=== PATIENT | male | born 1945 | race Caucasian/White ===

== ENCOUNTER 2022-05-09 17:02 | Observation (INO) | payer MEDICARE ==
[2022-05-09 17:38] LABS: #Eosinphils 0.3 thou/uL (0.0-0.7); #Lymphocytes 1.9 thou/uL (1.20-3.40); %Basophils 0.4 % (0.0-1.0); %Eosinophils 3.1 % (0.0-10.0); %Lymphocytes 20.8 % (21.0-51.0); %Monocytes 10.6 % (0.0-10.0); %Neutrophils 65.1 % (42.0-75.0); Hemoglobin 15.4 g/dL (14.0-18.0); Mean Corpuscular HGB CONC 33.5 g/dL (32.0-36.0); Mean Corpuscular Hemoglobin 30.3 pg (27.0-31.0); Mean Corpuscular Volume 90.5 fl (78.0-98.0); Mean Platelet Volume 8.9 fL (7.4-10.4); Platelet Count 188 10x3/uL (130-400); RBC Distribution Width 12.8 % (11.5-14.5); Red Blood Cell (RBC) Count 5.08 mill/uL (4.70-6.10); White Blood Cell (WBC) Count 9.2 10x3/uL (4.8-10.8)
[2022-05-09 18:09] LABS: ALT (SGPT) 18 U/L (8-55); AST (SGOT) 23 U/L (5-34); Albumin 4.2 g/dL (3.4-4.8); Alkaline Phosphatase 63 U/L (40-110); Anion Gap 15 mmol/L (10-20); BUN (Urea Nitrogen) 24 mg/dL (8.4-25.7); Calc. Creatinine Clearance 0 mL/min (70-130); Calcium 9.3 mg/dL (7.8-10.44); Carbon Dioxide 21 mmol/L (23-31); Chloride 106 mmol/L (98-107); Estimated GFR 62; Globulin 3.2 g/dL (2.4-3.5); Glucose 105 mg/dL (83-110); Potassium 3.9 mmol/L (3.5-5.1); Protein, Total 7.4 g/dL (5.8-8.1); Sodium 138 mmol/L (136-145)
[2022-05-09 21:52] LABS: CKMB 2.3 ng/mL (0-6.6)
[2022-05-09] MEDS ORDERED: Aspirin Chewable 81 MG TAB ONE (22:03)
[2022-05-09] MEDS ORDERED: Ondansetron ODT 4 MG TAB PO PRN (23:02)
[2022-05-09] MEDS ORDERED: Senokot S 8.6-50 MG TAB PO PRN (23:02)
[2022-05-09] MEDS ORDERED: Acetaminophen 325 MG TAB PO PRN (23:02)
[2022-05-09] MEDS ORDERED: Albuterol 200 PUFF (6.7GM INHALER) INH PRN (23:03)
[2022-05-10 00:13] VITALS: BMI 23.6
[2022-05-10 00:19] LABS: Troponin I 0.058 ng/mL (< 0.028)
[2022-05-10 04:53] LABS: #Eosinphils 0.4 thou/uL (0.0-0.7); #Lymphocytes 1.7 thou/uL (1.20-3.40); #Monocytes 0.9 thou/uL (0.11-0.59); #Neutrophils 2.9 thou/uL (1.40-6.50); %Basophils 0.6 % (0.0-1.0); %Eosinophils 6.1 % (0.0-10.0); %Lymphocytes 28.8 % (21.0-51.0); %Monocytes 14.8 % (0.0-10.0); %Neutrophils 49.6 % (42.0-75.0); Hemoglobin 13.9 g/dL (14.0-18.0); Mean Corpuscular HGB CONC 33.7 g/dL (32.0-36.0); Mean Corpuscular Hemoglobin 30.8 pg (27.0-31.0); Mean Corpuscular Volume 91.5 fl (78.0-98.0); Mean Platelet Volume 8.7 fL (7.4-10.4); Platelet Count 167 10x3/uL (130-400); RBC Distribution Width 12.9 % (11.5-14.5); Red Blood Cell (RBC) Count 4.53 mill/uL (4.70-6.10); White Blood Cell (WBC) Count 5.8 10x3/uL (4.8-10.8)
[2022-05-10 05:18] LABS: Anion Gap 11 mmol/L (10-20); BUN (Urea Nitrogen) 22 mg/dL (8.4-25.7); Calc. Creatinine Clearance 66 mL/min (70-130); Calcium 8.7 mg/dL (7.8-10.44); Carbon Dioxide 24 mmol/L (23-31); Chloride 108 mmol/L (98-107); Estimated GFR 71; Glucose 114 mg/dL (83-110); Potassium 3.7 mmol/L (3.5-5.1); Sodium 139 mmol/L (136-145)
[2022-05-10] MEDS: Aspirin Chewable 81 MG TAB PO SCH (08:43)
[2022-05-10] MEDS: Famotidine 20 MG TAB PO SCH ×2 (08:43→19:56)
[2022-05-10] MEDS: Tamsulosin HCl 0.4 MG CAP PO SCH (08:59)
[2022-05-10] MEDS ORDERED: Regadenoson 0.4 MG/5 ML SYRINGE ONE (09:52)
[2022-05-10] MEDS ORDERED: Communication Order-Pharmacy FS SCH (12:08)
[2022-05-10 12:34] LABS: Hemoglobin 14.4 g/dL (14.0-18.0); Platelet Count 188 10x3/uL (130-400)
[2022-05-10 12:53] LABS: Digoxin 1.08 ng/mL (0.8-2.0)
[2022-05-10] MEDS ORDERED: Atorvastatin Calcium 40 MG TAB PO SCH (21:00)
[2022-05-11 05:43] LABS: Hemoglobin A1c 5.7 % (4.0-6.0)
[2022-05-11 05:45] LABS: Anion Gap 12 mmol/L (10-20); BUN (Urea Nitrogen) 21 mg/dL (8.4-25.7); Calc. Creatinine Clearance 74 mL/min (70-130); Calcium 8.9 mg/dL (7.8-10.44); Carbon Dioxide 23 mmol/L (23-31); Cardiac Risk 2.8 (Less than 4.5); Chloride 109 mmol/L (98-107); Cholesterol 135 mg/dl (< 200 Desired); Estimated GFR 81; Glucose 100 mg/dL (83-110); HDL Cholesterol 49 mg/dL (>60 Neg Risk); LDL Cholesterol, Calculated 68 mg/dL; Potassium 4.1 mmol/L (3.5-5.1); Sodium 140 mmol/L (136-145); Triglycerides 90 mg/dL (Less than 150)
[2022-05-11 08:38] VITALS: TEMP 97.6
[2022-05-11] MEDS: Aspirin Chewable 81 MG TAB PO SCH (08:46)
[2022-05-11] MEDS: Tamsulosin HCl 0.4 MG CAP PO SCH (08:47)
[2022-05-11] MEDS: Famotidine 20 MG TAB PO SCH (08:47)
[2022-05-11 11:48] VITALS: BP 119/66
[2022-05-11] MEDS ORDERED: Metoprolol Tartrate 25 MG TAB PO PRN (21:00)
[2022-05-11] MEDS ORDERED: Apixaban 5 MG TAB PO SCH (21:00)
== END 2022-05-11 15:30 | disposition home or self-care (01) ==
LOC: ERS 17:02 → 2SW 22:34
PROVIDERS: ADMIT Student in an Organized Health Care Education/Training Program; ATTEND Family Medicine
DX: I48.92 Unspecified atrial flutter (principal); I49.5 Sick sinus syndrome; I49.1 Atrial premature depolarization; I44.30 Unspecified atrioventricular block; Z20.822 Contact with and (suspected) exposure to COVID-19; R79.89 Other specified abnormal findings of blood chemistry; I49.3 Ventricular premature depolarization; I47.1 Supraventricular tachycardia; I10 Essential (primary) hypertension; I08.1 Rheumatic disorders of both mitral and tricuspid valves; E78.00 Pure hypercholesterolemia, unspecified; N40.0 Benign prostatic hyperplasia without lower urinary tract symptoms; J45.909 Unspecified asthma, uncomplicated; K21.9 Gastro-esophageal reflux disease without esophagitis; Z79.899 Other long term (current) drug therapy
CPT/HCPCS: 71045; 78452; 80048 ×2; 80061; 80162; 82553; 83036; 84484 ×2; 85014; 85018; 85025; 85049; 93005; 93017; 93306; 96361; 96372 ×2; 96374; 99285; A9500; G0378 ×4; U0003; U0005; 36415; 80053; 84443; J1650

== ENCOUNTER 2022-10-23 19:30 | Outpatient (CLI) | payer MEDICARE | END 2022-10-23 19:31 | disposition home or self-care (01) | LOC: SLEEPLAB 19:30 | PROVIDERS: ATTEND Internal Medicine | DX: G47.61 Periodic limb movement disorder (principal); G25.81 Restless legs syndrome; G47.12 Idiopathic hypersomnia without long sleep time; R06.83 Snoring; R51.9 Headache, unspecified; R53.83 Other fatigue; R09.89 Other specified symptoms and signs involving the circulatory and respiratory systems; I51.89 Other ill-defined heart diseases | CPT/HCPCS: 95810 ==